=== PATIENT | male | born 1980 | race Caucasian/White ===

== ENCOUNTER 2019-05-27 12:03 | Emergency (ER) | payer SELFPAY ==
[~2019-05-27] VITALS: Ht 177.8 cm; Wt 78.0 kg
--- NOTE | 2019-05-27 12:12 | NUR ---
NA X 1
[2019-05-27 12:15] VITALS: BP 120/79
--- NOTE | 2019-05-27 13:36 | NUR ---
TO ROOM FROM LOBBY. NAD.
[2019-05-27 14:10] LABS: BASOPHILS # (AUTO) 0.05 x10^3/uL (0-0.1); BASOPHILS % (AUTO) 1 % (0-1); EOSINOPHILS # (AUTO) 0.02 x10^3/uL (0-0.4); EOSINOPHILS % (AUTO) 0 % (1-7); LYMPHOCYTES # (AUTO) 1.12 x10^3/uL (1-3.4); LYMPHOCYTES % (AUTO) 13 % (22-44); MD NO; MEAN CORPUSCULAR HGB CONC 34.7 g/dL (33.2-36.2); MEAN CORPUSCULAR VOLUME 92.2 fL (81-97); MEAN PLATELET VOLUME 8.5 fL (7.4-10.4); MONOCYTES # (AUTO) 0.31 x10^3/uL (0.2-0.8); MONOCYTES % (AUTO) 4 % (2-9); NEUTROPHILS # (AUTO) 7.25 x10^3/uL (1.8-6.8); NEUTROPHILS % (AUTO) 83 % (42-75); PLATELET COUNT 210 x10^3/uL (130-400); RED BLOOD COUNT 5.27 x10^6/uL (4.38-5.82)
[2019-05-27 14:22] LABS: ANION GAP 5 mmol/L (5-15); CALCIUM 8.8 mg/dL (8.5-10.1); CHLORIDE 108 mmol/L (98-107)
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
--- NOTE | 2019-05-27 15:13 | NUR ---
PT PROVIDED WITH MEAL TRAY
== END 2019-05-27 16:37 | disposition home or self-care (01) ==
LOC: ED 16:31
DX: G43.009 Migraine without aura, not intractable, without status migrainosus (principal)
CPT/HCPCS: 36415; 80048; 85025; 99283

== ENCOUNTER 2019-06-25 04:49 | Emergency (ER) | payer MEDICAID, OTHER ==
[~2019-06-25] VITALS: Ht 175.3 cm; Wt 76.0 kg
[2019-06-25 04:57] VITALS: BP 140/86
--- NOTE | 2019-06-25 05:21 | NUR ---
Patient presents to ER c/o cough and CP x1 month. Patient states he's had this before intermittently for over a year. He has not seen his primary doctor since 2011 because he went to [facility]. Patient states he also has intermittent migraines. Patient is in NAD. Respirations even and unlabored.
[2019-06-25] MEDS ORDERED: KETOROLAC 30 MG/1 ML IM ONE (05:30)
[2019-06-25] MEDS ORDERED: KETOROLAC 30 MG/1 ML ONE (05:31)
--- NOTE | 2019-06-25 06:06 | NUR ---
Pt d/c'd to home care. Pt alert, oriented and ambulatory. NAD. Pt 98% on room air. Pt educated on prescription, home care, S/Sx to return and follow-up. Pt VU. Pt ambulated out of ER.
== END 2019-06-25 06:09 | disposition home or self-care (01) ==
LOC: ED 05:10
DX: M94.0 Chondrocostal junction syndrome [Tietze] (principal); R07.89 Other chest pain; G43.909 Migraine, unspecified, not intractable, without status migrainosus; F17.200 Nicotine dependence, unspecified, uncomplicated
CPT/HCPCS: 71045; 93005; 96372; 99283; J1885

== ENCOUNTER 2019-07-01 11:51 | Emergency (ER) | payer SELFPAY ==
[~2019-07-01] VITALS: Ht 175.3 cm; Wt 78.8 kg
[2019-07-01] MEDS ORDERED: DIPHENHYDRAMINE 50 MG/ML, 1ML ONE (12:20)
[2019-07-01] MEDS ORDERED: METOCLOPRAMIDE 5 MG/ML, 2ML ONE (12:21)
[2019-07-01] MEDS ORDERED: MAALOX/HYOSCYAMINE/LIDOCAINE 45 ML BTL ONE (12:22)
[2019-07-01] MEDS ORDERED: METOCLOPRAMIDE 5 MG/ML, 2ML IVPush ONE (12:30)
[2019-07-01] MEDS ORDERED: DIPHENHYDRAMINE 50 MG/ML, 1ML IVPush ONE (12:30)
[2019-07-01] MEDS ORDERED: SODIUM CHLORIDE FLUSH 10ML SYR IVF ONE (12:30)
[2019-07-01] MEDS ORDERED: MAALOX/HYOSCYAMINE/LIDOCAINE 45 ML BTL PO ONE (12:30)
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
[2019-07-01 12:51] LABS: BASOPHILS % (AUTO) 0 % (0-1); EOSINOPHILS # (AUTO) 0.07 x10^3/uL (0-0.4); EOSINOPHILS % (AUTO) 1 % (1-7); LYMPHOCYTES # (AUTO) 0.56 x10^3/uL (1-3.4); LYMPHOCYTES % (AUTO) 4 % (22-44); MD NO; MEAN CORPUSCULAR HEMOGLOBIN 31.6 pg (27.5-34.5); MEAN CORPUSCULAR HGB CONC 34.8 g/dL (33.2-36.2); MEAN CORPUSCULAR VOLUME 90.9 fL (81-97); MEAN PLATELET VOLUME 8.5 fL (7.4-10.4); MONOCYTES # (AUTO) 0.16 x10^3/uL (0.2-0.8); MONOCYTES % (AUTO) 1 % (2-9); NEUTROPHILS # (AUTO) 12.77 x10^3/uL (1.8-6.8); NEUTROPHILS % (AUTO) 94 % (42-75); PLATELET COUNT 219 x10^3/uL (130-400); RED BLOOD COUNT 5.57 x10^6/uL (4.38-5.82)
[2019-07-01 13:05] LABS: ALBUMIN 3.8 g/dL (3.4-5.0); ANION GAP 9 mmol/L (5-15); CALCIUM 8.6 mg/dL (8.5-10.1); CHLORIDE 109 mmol/L (98-107)
[2019-07-01 13:10] LABS: ALANINE AMINOTRANSFERASE 25 U/L (12-78); ALKALINE PHOSPHATASE 84 U/L (45-117); BILIRUBIN,TOTAL 1.2 mg/dL (0.2-1.0); CREATININE 0.85 mg/dL (0.7-1.3); TOTAL PROTEIN 6.9 g/dL (6.4-8.2); TROPONIN I < 0.015 ng/mL (0.000-0.045)
[2019-07-01 13:30] VITALS: BP 120/80
== END 2019-07-07 16:52 | disposition home or self-care (01) ==
LOC: ED 12:10
DX: J06.9 Acute upper respiratory infection, unspecified (principal); R51 Headache; R05 Cough; R07.89 Other chest pain; R10.10 Upper abdominal pain, unspecified
CPT/HCPCS: 36415; 71045; 80053; 83690; 84484; 85025; 93005; 96374; 96375; 99285; J1200; J2765

== ENCOUNTER 2019-07-12 08:01 | Emergency (ER) | payer MEDICAID ==
[~2019-07-12] VITALS: Ht 175.3 cm; Wt 77.2 kg
--- NOTE | 2019-07-12 08:22 | NUR ---
PROD COUGH, CONGESTION, SORE THROAT X [address] DODSON AT BEDSIDE, PT ASSESSMENT REV AND QUESTIONS ANSWERED. CALL LIGHT W/I REACH, SP02 MONITOR AND BP IN PLACE. NAD NOTED AT THIS TIME.
[2019-07-12 09:22] VITALS: BP 137/81
--- NOTE | 2019-07-12 09:23 | NUR ---
Patient/Caregiver given discharge instructions and they have confirmed that they understand the instructions. Patient ambulatory with steady gait.
== END 2019-07-12 09:24 | disposition home or self-care (01) ==
LOC: ED 08:33
DX: J02.8 Acute pharyngitis due to other specified organisms (principal); B97.89 Other viral agents as the cause of diseases classified elsewhere; F17.210 Nicotine dependence, cigarettes, uncomplicated
CPT/HCPCS: 71045; 99283; 99406

== ENCOUNTER 2019-07-15 17:30 | Emergency (ER) | payer MEDICAID ==
[~2019-07-15] VITALS: Ht 175.3 cm; Wt 75.5 kg
--- NOTE | 2019-07-15 17:44 | NUR ---
BREAK RN- PATIENT SEEN HERE ONE WEEK AGO FOR COUGH, CONTINUED COUGH AND DEVELOPED NUMBNESS IN RIGHT ARM. PT DENIES N/V, CP, FEVER, CHILLS.
--- NOTE | 2019-07-15 17:48 | NUR ---
TASK RN: PT PLACED ON CONT PULSE OX, NIBP AND WEIGHER AND GRADER. CARMINA
[2019-07-15] MEDS ORDERED: OMNIPAQUE 350 MG/ML, 100ML BOTTLE ONE (18:00)
--- NOTE | 2019-07-15 18:17 | NUR ---
TASK RN: BEDSIDE REPORT TO JOSE DENNIS.
[2019-07-15] MEDS ORDERED: SODIUM CHLORIDE FLUSH 10ML SYR IVF ONE (18:30)
--- NOTE | 2019-07-15 18:44 | NUR ---
PIV PLACED. LABS DRAWN, 2 SETS OF BLOOD CULTURES DRAWN AND TAKEN BY LAB. PT RESTING COMFORTABLY ON GURNEY. CARMINA.
[2019-07-15 18:54] LABS: BASOPHILS # (AUTO) 0.02 x10^3/uL (0-0.1); BASOPHILS % (AUTO) 0 % (0-1); EOSINOPHILS # (AUTO) 0.22 x10^3/uL (0-0.4); EOSINOPHILS % (AUTO) 3 % (1-7); LYMPHOCYTES # (AUTO) 1.69 x10^3/uL (1-3.4); LYMPHOCYTES % (AUTO) 27 % (22-44); MD NO; MEAN CORPUSCULAR HEMOGLOBIN 31.8 pg (27.5-34.5); MEAN CORPUSCULAR HGB CONC 35.1 g/dL (33.2-36.2); MEAN CORPUSCULAR VOLUME 90.6 fL (81-97); MEAN PLATELET VOLUME 8.1 fL (7.4-10.4); MONOCYTES # (AUTO) 0.39 x10^3/uL (0.2-0.8); MONOCYTES % (AUTO) 6 % (2-9); NEUTROPHILS # (AUTO) 4.06 x10^3/uL (1.8-6.8); NEUTROPHILS % (AUTO) 64 % (42-75); PLATELET COUNT 283 x10^3/uL (130-400); RED BLOOD COUNT 5.24 x10^6/uL (4.38-5.82); RED CELL DISTRIBUTION WIDTH 12.9 % (9.4-14.8)
[2019-07-15 19:07] LABS: ALANINE AMINOTRANSFERASE 23 U/L (12-78); ALBUMIN 3.6 g/dL (3.4-5.0); ANION GAP 6 mmol/L (5-15); CALCIUM 8.9 mg/dL (8.5-10.1); CHLORIDE 112 mmol/L (98-107); CREATININE 1.05 mg/dL (0.7-1.3)
[2019-07-15 19:11] LABS: ALKALINE PHOSPHATASE 79 U/L (45-117); BILIRUBIN,TOTAL 0.6 mg/dL (0.2-1.0); TOTAL PROTEIN 7.1 g/dL (6.4-8.2); TROPONIN I < 0.015 ng/mL (0.000-0.045)
[2019-07-15 19:37] VITALS: BP 115/79
--- NOTE | 2019-07-15 19:38 | NUR ---
ALL RESULTS ARE BACK AT THIS TIME. CHART UP FOR RECHECK.
== END 2019-07-15 20:38 | disposition home or self-care (01) ==
LOC: ED 18:03
DX: J06.9 Acute upper respiratory infection, unspecified (principal); R09.3 Abnormal sputum; R06.02 Shortness of breath; F17.200 Nicotine dependence, unspecified, uncomplicated; G43.909 Migraine, unspecified, not intractable, without status migrainosus
CPT/HCPCS: 36415; 71275; 80053; 83605; 83880; 84484; 85025; 87040; 93005; 99285; Q9967

== ENCOUNTER 2019-07-20 17:35 | Emergency (ER) | payer MEDICAID, OTHER ==
[~2019-07-20] VITALS: Ht 175.3 cm; Wt 74.9 kg
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
--- NOTE | 2019-07-20 18:19 | NUR ---
PT REPORT FROM BREAK RN. PT CARE TO BE ASSUMED.
--- NOTE | 2019-07-20 19:24 | NUR ---
PT SITTING QUIETLY ON BED, RESP EVEN & UNLABORED, SPEECH CLEAR, SKIN WNL. REPORTS "HARD TO BREATHE AFTER I COUGH". NO COUGH HEARD. PRENISONE PO GIVEN PER EMAR. PT AWAITING RESP TX. CXR NOW AT BS.
[2019-07-20] MEDS ORDERED: ALBUTEROL/IPRATROPIUM 2.5MG/0.5MG, 3 ML NPPB ONE (19:30)
[2019-07-20] MEDS ORDERED: ALBUTEROL/IPRATROPIUM 2.5MG/0.5MG, 3 ML ONE (20:18)
[2019-07-20 20:41] VITALS: BP 102/60
== END 2019-07-20 20:43 | disposition home or self-care (01) ==
LOC: ED 17:56
DX: J45.41 Moderate persistent asthma with (acute) exacerbation (principal); G43.909 Migraine, unspecified, not intractable, without status migrainosus; Z59.0 Homelessness
CPT/HCPCS: 71045; 94640; 99283; J7512

== ENCOUNTER 2019-07-28 15:20 | Emergency (ER) | payer SELFPAY ==
[~2019-07-28] VITALS: Ht 175.3 cm; Wt 75.0 kg
--- NOTE | 2019-07-28 16:03 | NUR ---
PT WITH C/O DRY NON-PRODUCTIVE COUGH X1 MONTH. PT DENIES SOB/CP. PT TO CARD MONITOR, BP, CONT PULSE OX. ERPROVIDER IN TO EVAL PT. ORDERS RECIEVED
[2019-07-28 16:05] VITALS: BP 121/79
[2019-07-28 16:14] LABS: BASOPHILS # (AUTO) 0.04 x10^3/uL (0-0.1); BASOPHILS % (AUTO) 1 % (0-1); EOSINOPHILS # (AUTO) 0.12 x10^3/uL (0-0.4); EOSINOPHILS % (AUTO) 2 % (1-7); LYMPHOCYTES % (AUTO) 27 % (22-44); MD NO; MEAN CORPUSCULAR HEMOGLOBIN 31.8 pg (27.5-34.5); MEAN CORPUSCULAR HGB CONC 34.5 g/dL (33.2-36.2); MEAN PLATELET VOLUME 8.7 fL (7.4-10.4); MONOCYTES # (AUTO) 0.33 x10^3/uL (0.2-0.8); MONOCYTES % (AUTO) 5 % (2-9); NEUTROPHILS % (AUTO) 66 % (42-75); PLATELET COUNT 253 x10^3/uL (130-400); RED BLOOD COUNT 5.42 x10^6/uL (4.38-5.82); RED CELL DISTRIBUTION WIDTH 13.5 % (9.4-14.8)
[2019-07-28 16:24] LABS: ALBUMIN 3.9 g/dL (3.4-5.0); ANION GAP 5 mmol/L (5-15); CALCIUM 8.2 mg/dL (8.5-10.1); CHLORIDE 111 mmol/L (98-107); CREATININE 0.95 mg/dL (0.7-1.3)
[2019-07-28 16:27] LABS: TROPONIN I < 0.015 ng/mL (0.000-0.045)
== END 2019-07-28 18:12 | disposition home or self-care (01) ==
LOC: ED 16:52
DX: J20.8 Acute bronchitis due to other specified organisms (principal); B97.89 Other viral agents as the cause of diseases classified elsewhere; R07.89 Other chest pain; R06.02 Shortness of breath; J45.909 Unspecified asthma, uncomplicated; G43.909 Migraine, unspecified, not intractable, without status migrainosus; F17.210 Nicotine dependence, cigarettes, uncomplicated
CPT/HCPCS: 36415; 71045; 80048; 82040; 84484; 85025; 93005; 99285

== ENCOUNTER 2019-08-03 11:47 | Emergency (ER) | payer MEDICAID, MEDICARE, OTHER ==
[~2019-08-03] VITALS: Ht 175.3 cm; Wt 75.4 kg
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
[2019-08-03 12:53] LABS: BASOPHILS # (AUTO) 0.04 x10^3/uL (0-0.1); BASOPHILS % (AUTO) 1 % (0-1); EOSINOPHILS # (AUTO) 0.13 x10^3/uL (0-0.4); EOSINOPHILS % (AUTO) 2 % (1-7); LYMPHOCYTES % (AUTO) 31 % (22-44); MD NO; MEAN CORPUSCULAR HGB CONC 35.1 g/dL (33.2-36.2); MEAN CORPUSCULAR VOLUME 91.3 fL (81-97); MEAN PLATELET VOLUME 8.2 fL (7.4-10.4); MONOCYTES # (AUTO) 0.29 x10^3/uL (0.2-0.8); MONOCYTES % (AUTO) 4 % (2-9); NEUTROPHILS # (AUTO) 4.25 x10^3/uL (1.8-6.8); NEUTROPHILS % (AUTO) 63 % (42-75); PLATELET COUNT 247 x10^3/uL (130-400); RED BLOOD COUNT 5.25 x10^6/uL (4.38-5.82); RED CELL DISTRIBUTION WIDTH 13.5 % (9.4-14.8)
[2019-08-03 13:06] LABS: ALANINE AMINOTRANSFERASE 22 U/L (12-78); ALBUMIN 3.7 g/dL (3.4-5.0); ANION GAP 5 mmol/L (5-15); CALCIUM 8.6 mg/dL (8.5-10.1); CHLORIDE 110 mmol/L (98-107); CREATININE 1.04 mg/dL (0.7-1.3)
[2019-08-03 13:10] LABS: ALKALINE PHOSPHATASE 81 U/L (45-117); BILIRUBIN,TOTAL 0.6 mg/dL (0.2-1.0); TOTAL PROTEIN 6.7 g/dL (6.4-8.2); TROPONIN I < 0.015 ng/mL (0.000-0.045)
[2019-08-03 13:36] VITALS: BP 107/71
== END 2019-08-03 14:00 | disposition home or self-care (01) ==
LOC: ED 12:18
DX: R55 Syncope and collapse (principal); R07.9 Chest pain, unspecified
CPT/HCPCS: 36415; 71045; 80053; 84484; 85025; 93005; 99285

== ENCOUNTER 2019-08-03 17:44 | Emergency (ER) | payer MEDICAID ==
[~2019-08-03] VITALS: Ht 175.3 cm; Wt 75.9 kg
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
[2019-08-03] MEDS ORDERED: DIPH,PERTUSS(ACELL),TET VAC/PF 0.5 ML IM-VACC ONE ×2 (18:08→18:30)
--- NOTE | 2019-08-03 18:18 | NUR ---
TDAP GIVEN PER EMAR
[2019-08-03 18:24] LABS: BASOPHILS # (AUTO) 0.08 x10^3/uL (0-0.1); BASOPHILS % (AUTO) 1 % (0-1); EOSINOPHILS # (AUTO) 0.06 x10^3/uL (0-0.4); EOSINOPHILS % (AUTO) 1 % (1-7); LYMPHOCYTES # (AUTO) 1.83 x10^3/uL (1-3.4); LYMPHOCYTES % (AUTO) 23 % (22-44); MD NO; MEAN CORPUSCULAR HEMOGLOBIN 31.9 pg (27.5-34.5); MEAN CORPUSCULAR VOLUME 91.2 fL (81-97); MEAN PLATELET VOLUME 8.5 fL (7.4-10.4); MONOCYTES # (AUTO) 0.26 x10^3/uL (0.2-0.8); MONOCYTES % (AUTO) 3 % (2-9); NEUTROPHILS # (AUTO) 5.62 x10^3/uL (1.8-6.8); NEUTROPHILS % (AUTO) 72 % (42-75); PLATELET COUNT 234 x10^3/uL (130-400); RED BLOOD COUNT 5.13 x10^6/uL (4.38-5.82); RED CELL DISTRIBUTION WIDTH 12.9 % (9.4-14.8)
[2019-08-03 18:34] LABS: ALANINE AMINOTRANSFERASE 23 U/L (12-78); ALBUMIN 3.8 g/dL (3.4-5.0); ANION GAP 6 mmol/L (5-15); CALCIUM 8.4 mg/dL (8.5-10.1); CHLORIDE 110 mmol/L (98-107); CREATININE 1.09 mg/dL (0.7-1.3)
[2019-08-03 18:36] LABS: ALKALINE PHOSPHATASE 78 U/L (45-117); BILIRUBIN,TOTAL 0.7 mg/dL (0.2-1.0); TOTAL PROTEIN 6.7 g/dL (6.4-8.2)
[2019-08-03 18:58] VITALS: BP 117/76
== END 2019-08-03 19:00 | disposition home or self-care (01) ==
LOC: ED 18:36
DX: S09.92XA Unspecified injury of nose, initial encounter (principal); J45.909 Unspecified asthma, uncomplicated; F17.290 Nicotine dependence, other tobacco product, uncomplicated; Z59.0 Homelessness; Y04.2XXA Assault by strike against or bumped into by another person, initial encounter; Y93.89 Activity, other specified; Y92.89 Other specified places as the place of occurrence of the external cause; Y99.8 Other external cause status; R51 Headache
CPT/HCPCS: 36415; 80053; 85025; 86705; 86706; 86803; 87340; 87806; 90471; 90715; 99283; G0475

== ENCOUNTER 2019-08-09 07:30 | Emergency (ER) | payer MEDICAID ==
[~2019-08-09] VITALS: Ht 175.3 cm; Wt 77.4 kg
[2019-08-09 07:39] VITALS: BP 109/77
[2019-08-09 09:13] LABS: BASOPHILS # (AUTO) 0.04 x10^3/uL (0-0.1); BASOPHILS % (AUTO) 1 % (0-1); EOSINOPHILS # (AUTO) 0.19 x10^3/uL (0-0.4); EOSINOPHILS % (AUTO) 4 % (1-7); LYMPHOCYTES # (AUTO) 1.57 x10^3/uL (1-3.4); LYMPHOCYTES % (AUTO) 29 % (22-44); MD NO; MEAN CORPUSCULAR HEMOGLOBIN 31.6 pg (27.5-34.5); MEAN CORPUSCULAR HGB CONC 34.3 g/dL (33.2-36.2); MEAN CORPUSCULAR VOLUME 92.2 fL (81-97); MEAN PLATELET VOLUME 8.3 fL (7.4-10.4); MONOCYTES # (AUTO) 0.29 x10^3/uL (0.2-0.8); MONOCYTES % (AUTO) 5 % (2-9); NEUTROPHILS # (AUTO) 3.27 x10^3/uL (1.8-6.8); NEUTROPHILS % (AUTO) 61 % (42-75); PLATELET COUNT 217 x10^3/uL (130-400); RED BLOOD COUNT 5.24 x10^6/uL (4.38-5.82); RED CELL DISTRIBUTION WIDTH 13.4 % (9.4-14.8)
[2019-08-09 09:22] LABS: ALBUMIN 3.6 g/dL (3.4-5.0); ANION GAP 5 mmol/L (5-15); CALCIUM 8.7 mg/dL (8.5-10.1); CHLORIDE 111 mmol/L (98-107); CREATININE 0.91 mg/dL (0.7-1.3)
== END 2019-08-09 10:55 | disposition home or self-care (01) ==
LOC: ED 07:55
DX: R53.1 Weakness (principal); J45.909 Unspecified asthma, uncomplicated; G43.909 Migraine, unspecified, not intractable, without status migrainosus; F17.200 Nicotine dependence, unspecified, uncomplicated
CPT/HCPCS: 36415; 71045; 80048; 82040; 85025; 99284

== ENCOUNTER 2019-08-13 19:58 | Emergency (ER) | payer MEDICAID, MEDICARE ==
[~2019-08-13] VITALS: Ht 175.3 cm; Wt 75.9 kg
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
--- NOTE | 2019-08-13 20:37 | NUR ---
PATIENT IN XRAY
[2019-08-13] MEDS ORDERED: NEOSPORIN OINT. PKT 1 PACKET ONE (20:53)
--- NOTE | 2019-08-13 21:19 | NUR ---
Break RN: X ray resulted. chart up for MD to re-eval.
[2019-08-13 21:41] VITALS: BP 120/87
--- NOTE | 2019-08-13 22:02 | NUR ---
Patient given discharge instructions and they have confirmed that they understand the instructions. Patient ambulatory with steady gait.
== END 2019-08-13 22:04 | disposition home or self-care (01) ==
LOC: ED 21:31
DX: S20.211A Contusion of right front wall of thorax, initial encounter (principal); F15.10 Other stimulant abuse, uncomplicated; R00.0 Tachycardia, unspecified; J45.909 Unspecified asthma, uncomplicated; F17.210 Nicotine dependence, cigarettes, uncomplicated; G43.909 Migraine, unspecified, not intractable, without status migrainosus; Y04.8XXA Assault by other bodily force, initial encounter; Y93.89 Activity, other specified; Y92.488 Other paved roadways as the place of occurrence of the external cause; Y99.8 Other external cause status
CPT/HCPCS: 71046; 93005; 99283

== ENCOUNTER 2019-09-14 15:35 | Emergency (ER) | payer MEDICAID, OTHER ==
[~2019-09-14] VITALS: Ht 175.3 cm; Wt 70.8 kg
--- NOTE | 2019-09-14 16:20 | NUR ---
HORSE DOCTOR: PT AMBULATORY TO ROOM FROM LOBBY
--- NOTE | 2019-09-14 16:40 | NUR ---
ERP WAS IN TO SEE PT.
[2019-09-14] MEDS ORDERED: KETOROLAC 30 MG/1 ML ONE (16:53)
[2019-09-14 17:00] VITALS: BP 136/107
[2019-09-14] MEDS ORDERED: KETOROLAC 30 MG/1 ML IM ONE (17:00)
--- NOTE | 2019-09-14 17:02 | NUR ---
PT MEDICATED PER ORDERS. D/C INSTRUCTIONS, MEDS & F/U APPT RV'WD WITH PT, HE VERBALIZES UNDERSTANDING. INSTRUCTED PT TO RETURN TO ED FOR WORSENING SOB OR CP OR ANY OTHER CONCERNING SYMPTOMS. PT AMBULATED OUT OF ED WITHOUT DIFFICULTY, STATES HE'S CURRENTLY HOMELESS AND IS GOING TO "HANG OUT IN THE PARK".
== END 2019-09-14 17:03 | disposition home or self-care (01) ==
LOC: ED 16:00
DX: S29.011A Strain of muscle and tendon of front wall of thorax, initial encounter (principal); J45.909 Unspecified asthma, uncomplicated; G43.909 Migraine, unspecified, not intractable, without status migrainosus; X58.XXXA Exposure to other specified factors, initial encounter; Y93.89 Activity, other specified; Y92.89 Other specified places as the place of occurrence of the external cause; Y99.8 Other external cause status
CPT/HCPCS: 71046; 93005; 96372; 99283; J1885

== ENCOUNTER 2019-09-27 09:57 | Emergency (ER) | payer MEDICAID ==
[~2019-09-27] VITALS: Ht 175.3 cm; Wt 71.3 kg
[2019-09-27 09:59] VITALS: BP 122/94
== END 2019-09-27 11:36 | disposition left against medical advice (07) ==
LOC: ED 09:58
DX: M79.671 Pain in right foot (principal); Z53.21 Procedure and treatment not carried out due to patient leaving prior to being seen by health care provider

== ENCOUNTER 2019-10-03 15:54 | Emergency (ER) | payer MEDICAID ==
[~2019-10-03] VITALS: Ht 175.3 cm; Wt 73.0 kg
[2019-10-03 16:11] VITALS: BP 116/66
[2019-10-03 17:03] LABS: BASOPHILS # (AUTO) 0.03 x10^3/uL (0-0.1); BASOPHILS % (AUTO) 1 % (0-1); EOSINOPHILS # (AUTO) 0.12 x10^3/uL (0-0.4); EOSINOPHILS % (AUTO) 2 % (1-7); LYMPHOCYTES # (AUTO) 2.17 x10^3/uL (1-3.4); LYMPHOCYTES % (AUTO) 34 % (22-44); MD NO; MEAN CORPUSCULAR HEMOGLOBIN 31.8 pg (27.5-34.5); MEAN CORPUSCULAR HGB CONC 34.8 g/dL (33.2-36.2); MEAN CORPUSCULAR VOLUME 91.6 fL (81-97); MEAN PLATELET VOLUME 8.9 fL (7.4-10.4); MONOCYTES % (AUTO) 6 % (2-9); NEUTROPHILS # (AUTO) 3.62 x10^3/uL (1.8-6.8); NEUTROPHILS % (AUTO) 57 % (42-75); PLATELET COUNT 252 x10^3/uL (130-400); RED BLOOD COUNT 4.84 x10^6/uL (4.38-5.82); RED CELL DISTRIBUTION WIDTH 13.3 % (9.4-14.8)
[2019-10-03 17:16] LABS: ALANINE AMINOTRANSFERASE 22 U/L (12-78); ALBUMIN 3.5 g/dL (3.4-5.0); ANION GAP 4 mmol/L (5-15); CALCIUM 8.8 mg/dL (8.5-10.1); CHLORIDE 111 mmol/L (98-107); CREATININE 0.95 mg/dL (0.7-1.3)
[2019-10-03 17:18] LABS: ALKALINE PHOSPHATASE 92 U/L (45-117); BILIRUBIN,TOTAL 0.4 mg/dL (0.2-1.0)
== END 2019-10-03 17:41 | disposition home or self-care (01) ==
LOC: ED 16:29
DX: R10.11 Right upper quadrant pain (principal); R07.89 Other chest pain
CPT/HCPCS: 36415; 71046; 80053; 85025; 99284

== ENCOUNTER 2019-10-04 08:01 | Emergency (ER) | payer MEDICAID ==
[~2019-10-04] VITALS: Ht 175.3 cm; Wt 72.8 kg
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
--- NOTE | 2019-10-04 09:10 | NUR ---
Provided bedside report to JOSE Asencio. All questions answered. JOSE Asencio to assume care of pt at this time.
[2019-10-04] MEDS ORDERED: ASPIRIN 81 MG TABLET CHEW PO ONE (09:30)
[2019-10-04] MEDS ORDERED: FAMOTIDINE 20 MG/2 ML ONE (10:02)
[2019-10-04] MEDS ORDERED: ONDANSETRON 2MG/ML, 2ML ONE (10:02)
[2019-10-04] MEDS ORDERED: MORPHINE SULFATE 4 MG/ML, 1ML ONE (10:02)
[2019-10-04] MEDS ORDERED: ASPIRIN 81 MG TABLET CHEW ONE (10:25)
--- NOTE | 2019-10-04 10:32 | NUR ---
TASK RN: Provided medication per EMAR. Pt appreciative.
[2019-10-04 10:33] VITALS: BP 107/76
--- NOTE | 2019-10-04 10:33 | NUR ---
Patient given discharge instructions and they have confirmed that they understand the instructions. Patient ambulatory with steady gait. Pt left with d/c paperwork and all personal belongings. NADN. Pt denies dizziness, light headedness, cp, or sob. No needs expressed at this time.
== END 2019-10-04 10:35 | disposition home or self-care (01) ==
LOC: ED 09:48
DX: R42 Dizziness and giddiness (principal); R07.9 Chest pain, unspecified; R10.84 Generalized abdominal pain; R94.31 Abnormal electrocardiogram [ECG] [EKG]; R00.2 Palpitations; J45.909 Unspecified asthma, uncomplicated
CPT/HCPCS: 93005; 99283

== ENCOUNTER 2019-10-05 15:10 | Emergency (ER) | payer MEDICAID ==
[~2019-10-05] VITALS: Ht 175.3 cm; Wt 73.1 kg
--- NOTE | 2019-10-05 15:25 | NUR ---
RPT TO JOSE STALLINGS
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
[2019-10-05 15:56] VITALS: BP 124/76
== END 2019-10-05 16:00 | disposition home or self-care (01) ==
LOC: ED 15:50
DX: S90.222A Contusion of left lesser toe(s) with damage to nail, initial encounter (principal); S90.822A Blister (nonthermal), left foot, initial encounter; S90.821A Blister (nonthermal), right foot, initial encounter; J45.909 Unspecified asthma, uncomplicated; G43.909 Migraine, unspecified, not intractable, without status migrainosus; F17.200 Nicotine dependence, unspecified, uncomplicated; X58.XXXA Exposure to other specified factors, initial encounter; Y93.89 Activity, other specified; Y92.89 Other specified places as the place of occurrence of the external cause; Y99.8 Other external cause status
CPT/HCPCS: 99283

== ENCOUNTER 2019-10-06 08:29 | Emergency (ER) | payer MEDICAID ==
[~2019-10-06] VITALS: Ht 175.3 cm; Wt 73.8 kg
[2019-10-06 08:32] VITALS: BP 125/89
== END 2019-10-06 09:08 | disposition home or self-care (01) ==
LOC: ED 08:40
DX: T63.301A Toxic effect of unspecified spider venom, accidental (unintentional), initial encounter (principal); G43.909 Migraine, unspecified, not intractable, without status migrainosus; Y92.89 Other specified places as the place of occurrence of the external cause
CPT/HCPCS: 99281

== ENCOUNTER 2019-10-08 19:13 | Emergency (ER) | payer SELFPAY ==
[~2019-10-08] VITALS: Ht 175.3 cm; Wt 72.8 kg
[2019-10-08 19:15] VITALS: BP 116/73
--- NOTE | 2019-10-08 19:33 | NUR ---
PT STATES CONSTIPATION X1 WEEK. ER PA-C AT BEDSIDE FOR ASSESSMENT. NO DISTRESS, CONT TO MONITOR.
--- NOTE | 2019-10-08 20:16 | NUR ---
RECEIVED REPORT FROM FIDEL GARCIA. ASSUMING CARE AT THIS TIME.
--- NOTE | 2019-10-08 20:18 | NUR ---
REPORT GIVEN TO JEANNIE GARCIA.
[2019-10-08 20:21] LABS: BASOPHILS # (AUTO) 0.03 x10^3/uL (0-0.1); BASOPHILS % (AUTO) 1 % (0-1); EOSINOPHILS % (AUTO) 1 % (1-7); LYMPHOCYTES # (AUTO) 2.71 x10^3/uL (1-3.4); LYMPHOCYTES % (AUTO) 37 % (22-44); MD NO; MEAN CORPUSCULAR HEMOGLOBIN 31.8 pg (27.5-34.5); MEAN CORPUSCULAR HGB CONC 34.5 g/dL (33.2-36.2); MEAN PLATELET VOLUME 9.1 fL (7.4-10.4); MONOCYTES # (AUTO) 0.33 x10^3/uL (0.2-0.8); MONOCYTES % (AUTO) 5 % (2-9); NEUTROPHILS # (AUTO) 4.17 x10^3/uL (1.8-6.8); NEUTROPHILS % (AUTO) 57 % (42-75); PLATELET COUNT 225 x10^3/uL (130-400); RED BLOOD COUNT 5.15 x10^6/uL (4.38-5.82); RED CELL DISTRIBUTION WIDTH 13.2 % (9.4-14.8)
[2019-10-08 20:27] LABS: ALANINE AMINOTRANSFERASE 26 U/L (12-78); ALBUMIN 3.9 g/dL (3.4-5.0); ANION GAP 6 mmol/L (5-15); CALCIUM 8.8 mg/dL (8.5-10.1); CHLORIDE 111 mmol/L (98-107); CREATININE 1.01 mg/dL (0.7-1.3)
[2019-10-08 20:29] LABS: ALKALINE PHOSPHATASE 88 U/L (45-117); BILIRUBIN,TOTAL 0.4 mg/dL (0.2-1.0); TOTAL PROTEIN 6.9 g/dL (6.4-8.2)
--- NOTE | 2019-10-08 20:36 | NUR ---
ALL RESULTS ARE BACK AT THIS TIME. CHART UP FOR RECHECK.
--- NOTE | 2019-10-08 20:41 | NUR ---
PT SITTING IN THE CHAIR, PLAYING ON PHONE. PT HAS TAKEN OFF ALL MONITORING.
== END 2019-10-08 21:04 | disposition home or self-care (01) ==
LOC: ED 19:45
DX: R10.84 Generalized abdominal pain (principal); K59.00 Constipation, unspecified; G43.909 Migraine, unspecified, not intractable, without status migrainosus
CPT/HCPCS: 36415; 74021; 80053; 83690; 85025; 99284

== ENCOUNTER 2019-10-11 14:42 | Emergency (ER) | payer MEDICAID ==
--- NOTE | 2019-10-11 14:58 | NUR ---
NOT IN LOBBY X1
== END 2019-10-11 15:10 | disposition left against medical advice (07) ==
LOC: ED 15:00
DX: R10.9 Unspecified abdominal pain (principal); Z53.21 Procedure and treatment not carried out due to patient leaving prior to being seen by health care provider

== ENCOUNTER 2020-05-22 16:36 | Emergency (ER) | payer MEDICAID ==
[~2020-05-22] VITALS: Ht 175.3 cm; Wt 76.9 kg
--- NOTE | 2020-05-22 17:07 | NUR ---
PT IN GOWN IN [facility] AWAITING ERP. PT ATTACHED TO VS MONITORS. VSS AT THIS TIME. PT EDUCATED ON ER PROCESS AND POC AND VERBALIZES UNDERSTANDING. CALL LIGHT IS WITHIN REACH OF PT AT THIS TIME AND PT PROVIDED WITH WARM BLANKET.
[2020-05-22 17:54] LABS: MICROSCOPIC NOT IND
--- NOTE | 2020-05-22 18:04 | NUR ---
PT VSS AND UPDATED IN EMR. PT AMBULATES TO RESTROOM WITH STEADY GAIT AT THIS TIME.
[2020-05-22 18:17] LABS: BASOPHILS % (AUTO) 1 % (0-1); EOSINOPHILS % (AUTO) 0 % (1-7); LYMPHOCYTES % (AUTO) 20 % (22-44); MEAN CORPUSCULAR HEMOGLOBIN 32.2 pg (27.5-34.5); MEAN CORPUSCULAR HGB CONC 36.2 g/dL (33.2-36.2); MONOCYTES % (AUTO) 5 % (2-9); NEUTROPHILS % (AUTO) 75 % (42-75); PLATELET COUNT 212 x10^3/uL (130-400); RED BLOOD COUNT 5.31 x10^6/uL (4.38-5.82); RED CELL DISTRIBUTION WIDTH 13.1 % (9.4-14.8)
[2020-05-22 18:24] LABS: ALANINE AMINOTRANSFERASE 24 U/L (12-78); ALBUMIN 4.4 g/dL (3.4-5.0); ANION GAP 5 mmol/L (5-15); CHLORIDE 109 mmol/L (98-107); CREATININE 1.17 mg/dL (0.7-1.3)
[2020-05-22 18:26] LABS: ALKALINE PHOSPHATASE 76 U/L (45-117); BILIRUBIN,TOTAL 1.1 mg/dL (0.2-1.0); TOTAL PROTEIN 7.3 g/dL (6.4-8.2)
[2020-05-22 18:59] LABS: MD SCAN
[2020-05-22 19:55] VITALS: BP 129/91
--- NOTE | 2020-05-22 19:55 | NUR ---
PT D/C WITH D/C SUMMARY AND SCRIPTS. ALL QUESTIONS ANSWERED. PT AMBULATES TO REGISTRATION DESK WITH STEADY GAIT FOR D/C HOME AND DENIES ANY OTHER NEEDS PERTAINING TO THIS VISIT.
== END 2020-05-22 20:09 | disposition home or self-care (01) ==
LOC: ED 20:03
DX: R10.84 Generalized abdominal pain (principal); R35.0 Frequency of micturition; J45.909 Unspecified asthma, uncomplicated
CPT/HCPCS: 36415; 80053; 81003; 83690; 85025; 99283

== ENCOUNTER 2020-05-31 15:26 | Emergency (ER) | payer MEDICARE, MEDICAID ==
[~2020-05-31] VITALS: Ht 175.3 cm; Wt 75.9 kg
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
[2020-05-31 17:37] VITALS: BP 128/80
== END 2020-05-31 17:39 | disposition home or self-care (01) ==
LOC: ED 17:30
DX: S80.02XA Contusion of left knee, initial encounter (principal); X58.XXXA Exposure to other specified factors, initial encounter; Y93.89 Activity, other specified; Y92.89 Other specified places as the place of occurrence of the external cause; Y99.8 Other external cause status
CPT/HCPCS: 99283

== ENCOUNTER 2020-06-04 04:36 | Emergency (ER) | payer MEDICARE, MEDICAID ==
[~2020-06-04] VITALS: Ht 177.8 cm; Wt 76.0 kg
[2020-06-04 04:38] VITALS: BP 143/89
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
[2020-06-04] MEDS ORDERED: IBUPROFEN 600 MG TABLET ONE (04:51)
[2020-06-04] MEDS ORDERED: ACETAMINOPHEN 325 MG TABLET ONE (04:52)
[2020-06-04] MEDS ORDERED: IBUPROFEN 600 MG TABLET PO ONE (05:00)
[2020-06-04] MEDS ORDERED: ACETAMINOPHEN 325 MG TABLET PO ONE (05:00)
--- NOTE | 2020-06-04 05:04 | NUR ---
DISCHARGE INSTRUCTIONS REVIEWED WITH PATIENT. NO QUESTIONS AT THIS TIME. PRESCRIPTION HANDED DIRECTLY TO PATIENT. STEADY GAIT TO [facility]. ALL PERSONAL BELONGINGS WITH PATIENT ON DC. NO DISCOLORATION TO LEG. DENIES NUMBNESS/TINGLING TO LEG. NO IV PLACED DURING THIS ER VISIT.
== END 2020-06-04 05:08 | disposition home or self-care (01) ==
LOC: ED 05:06
DX: S83.92XA Sprain of unspecified site of left knee, initial encounter (principal); J45.909 Unspecified asthma, uncomplicated; W22.8XXA Striking against or struck by other objects, initial encounter; Y93.89 Activity, other specified; Y92.89 Other specified places as the place of occurrence of the external cause; Y99.8 Other external cause status
CPT/HCPCS: 99283

== ENCOUNTER 2020-08-04 08:56 | Emergency (ER) | payer MEDICAID ==
[~2020-08-04] VITALS: Ht 175.3 cm; Wt 64.9 kg
[2020-08-04 09:02] VITALS: BP 108/71
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
--- NOTE | 2020-08-04 10:26 | NUR ---
THIS RN WENT TO CHECK TO SEE IF PT WAS ABLE TO PROVIDE URINE SAMPLE. PT NOT IN ROOM. PT'S BACKPACK GONE. PSA SITTING NEARBY STATED THAT SHE SAW PT WALK OUT OF ROOM AND OUT TO LOBBY SAYING "HE WAS WAITING TOO LONG." NOTIFIED THAT PT LEFT AMA.
== END 2020-08-04 10:30 | disposition left against medical advice (07) ==
LOC: ED 10:15
DX: R00.0 Tachycardia, unspecified (principal); J45.909 Unspecified asthma, uncomplicated; F17.200 Nicotine dependence, unspecified, uncomplicated
CPT/HCPCS: 99281